=== PATIENT | female | born 1965 | race Asian ===

== ENCOUNTER 2017-12-25 00:59 | Emergency (ER) | payer OTHER ==
[~2017-12-25] VITALS: Ht 152.4 cm; Wt 47.6 kg
[2017-12-25 01:06] VITALS: Ht 152.4 cm; Wt 47.6 kg
[2017-12-25 02:08] LABS: BASOPHIL % 0.6 % (0-2); PLATELET COUNT 316 x10^3mcL (130-400); RED CELL DISTRIBUTION WIDTH 12.8 % (11.5-14.5)
[2017-12-25 02:22] LABS: CALCIUM 8.8 mg/dL (8.5-10.1); CARBON DIOXIDE 27.1 mmol/L (21-32); CHLORIDE SERUM 108 mmol/L (98-107); CREATININE SERUM 0.6 mg/dL (0.6-1.0); GFR1 > 60 mL/min; GLUCOSE SERUM 116 mg/dL (74-106); POTASSIUM SERUM 3.4 mmol/L (3.5-5.1); SODIUM SERUM 145 mmol/L (136-145)
[2017-12-25 02:27] LABS: ALBUMIN 3.7 g/dL (3.4-5.0); ALKALINE PHOSPHATASE 83 U/L (46-116); ALT/SGPT 28 U/L (14-59); AST/SGOT 24 U/L (15-37); BILIRUBIN TOTAL 0.32 mg/dL (0.20-1.00)
[2017-12-25 02:36] LABS: microscopic required? NO
[2017-12-25 02:56] LABS: UA SPECIFIC GRAVITY <=1.005 (1.005-1.035); urine erythrocyte NEGATIVE (NEGATIVE)
[2017-12-25 04:38] VITALS: BP 142/79
== END 2017-12-25 04:38 | disposition home or self-care (01) ==
LOC: ED 00:59
PROVIDERS: Emergency Medicine
DX: R42 Dizziness and giddiness (principal); R55 Syncope and collapse; J44.9 Chronic obstructive pulmonary disease, unspecified; K21.9 Gastro-esophageal reflux disease without esophagitis; Z88.0 Allergy status to penicillin; Z88.8 Allergy status to other drugs, medicaments and biological substances
CPT/HCPCS: 36415; Q0092